=== PATIENT | female | born 1955 ===

== ENCOUNTER 2016-10-05 18:19 | Inpatient (IN) | payer MEDICARE, MEDICAID ==
[2016-10-05] MEDS ORDERED: Alum-Mag Hydrox-Simethicone Susp (30 mL) PO STA (18:57)
[2016-10-05] MEDS ORDERED: Sodium Chloride 0.9% 1,000 ML IV STA ×2 (18:57→21:29)
[2016-10-05 19:14] LABS: BASO # 0.1 K/uL (0.0-0.2); BASO % 0.6 % (0.0-2.0); EOS # 0.1 K/uL (0.0-0.7); EOS % 1.2 % (0.0-4.0); HEMATOCRIT 40.8 % (34.0-47.0); LYMPH # 3.6 K/uL (1.0-4.3); LYMPH % 34.9 % (20.0-40.0); MEAN CELL VOLUME 90.1 fl (81.0-99.0); MEAN CORPUSCULAR HEMOGLOBIN 29.2 pg (27.0-31.0); MEAN CORPUSCULAR HGB CONC 32.4 g/dL (33.0-37.0); MEAN PLATELET VOLUME 8.8 fl (7.2-11.7); MONO # 0.7 K/uL (0.0-0.8); MONO % 6.8 % (0.0-10.0); NEUT # 5.8 K/uL (1.8-7.0); NEUT % 56.5 % (50.0-75.0); RED CELL DISTRIBUTION WIDTH 15.2 % (11.5-14.5); WHITE BLOOD COUNT 10.2 K/uL (4.8-10.8)
[2016-10-05 19:21] LABS: ALB/GLOB RATIO 1.6 (1.0-2.1); ALKALINE PHOSPHATASE 75 U/L (38-126); ALT/SGPT 33 U/L (9-52); AST/SGOT 25 U/L (14-36); BILIRUBIN,TOTAL 0.4 mg/dl (0.2-1.3); BLOOD UREA NITROGEN 20 mg/dl (7-17); CALCIUM 10.1 mg/dL (8.4-10.2); CARBON DIOXIDE 28 mmol/L (22-30); CHLORIDE 99 mmol/L (98-107); GFR AFRICAN-AMERICAN > 60; GLUCOSE,RANDOM 78 mg/dL (65-105); LIPASE 521 U/L (23-300); POTASSIUM 4.8 MMOL/L (3.6-5.0); SODIUM 140 mmol/l (132-148); TOTAL PROTEIN 7.6 G/DL (6.3-8.2)
--- NOTE | 2016-10-05 19:39 | ED PDOC ---
HPI: Abdomen Time Seen by Provider: 10/05/16 18:35 Chief Complaint (Nursing): Abdominal Pain Chief Complaint (Provider): Epigastric abdominal History Per: Patient History/Exam Limitations: no limitations Onset/Duration Of Symptoms: Days (week) Outside of [place] travel?: No Current Symptoms Are (Timing): Still Present Location Of Pain/Discomfort: Epigastric (Radiatin, ruq and back ) Quality Of Discomfort: Burning Associated Symptoms: Nausea, Loss Of Appetite. denies: Fever, Chills, Vomiting Exacerbating Factors: None Alleviating Factors: None Last Bowel Movement: Today Additional Complaint(s): Pt states she has history of gastritis but she feels like it getting worse. No fever/chills. No diarrhea. (+) N/V. Abnormal Vaginal Bleeding: No Past Medical History Reviewed: Historical Data, Nursing Documentation, Vital Signs Vital Signs: Last Vital Signs Temp 98.4 F 10/05/16 18:27 Pulse 84 10/05/16 18:27 Resp 18 10/05/16 18:27 BP 151/79 H 10/05/16 18:27 Pulse Ox 100 10/05/16 18:27 - Medical History PMH: Anemia, Anxiety, Arthritis, Depression, Gastritis, HTN, Mitral Valve Prolapse Denies: CHF, COPD, Hypercholesterolemia, Hypothyroidism, Chronic Kidney Disease, Rheumatoid Arthritis - Surgical History Surgical History: Appendectomy - Family History Family History: States: No Known Family Hx - Home Medications Home Medications: Ambulatory Orders Medication Instructions Recorded Azelastine/Fluticasone [Dymista 1 sprays NS DAILY 04/08/14 Nasal [place]] Liraglutide [Victoza 2-Larry] 18 mg SC DAILY 04/08/14 Lisinopril/Hydrochlorothiazide 1 tab PO DAILY 04/08/14 [Lisinopril-Hctz 10-12.5 mg Tab] Cyclobenzaprine HCl [Flexeril] 10 mg PO HS 07/22/14 Omeprazole 40 mg PO DAILY 07/22/14 Mirtazapine [Remeron] 15 mg PO HS PRN #30 tab 08/02/14 Venlafaxine Hydrochloride 150 mg PO DAILY #0 ter 08/02/14 [Venlafaxine] Venlafaxine [Effexor XR] 37.5 mg PO DAILY #30 cer 08/02/14 - Allergies Allergies/Adverse Reactions: Allergies Allergy/AdvReac Type Severity Reaction Status Date / Time codeine Allergy RASH Verified 10/05/16 18:33 egg Allergy RASH Verified 10/05/16 18:33 morphine Allergy RASH Verified 10/05/16 18:33 Penicillins Allergy RASH Verified 10/05/16 18:33 Review of Systems ROS Statement: Except As Marked, All Systems Reviewed And Found Negative Constitutional: Negative for: Fever, Chills Gastrointestinal: Positive for: Nausea, Vomiting, Abdominal Pain Physical Exam - Reviewed Nursing Documentation Reviewed: Yes Vital Signs Reviewed: Yes - Physical Exam Appears: Positive for: Well, Non-toxic, No Acute Distress Head Exam: Positive for: ATRAUMATIC, NORMAL INSPECTION, NORMOCEPHALIC Skin: Positive for: Normal Color, Warm, DRY Eye Exam: Positive for: Normal appearance ENT: Positive for: Normal ENT Inspection Neck: Positive for: Normal, Painless ROM Cardiovascular/Chest: Positive for: Regular Rate, Rhythm Respiratory: Positive for: Normal Breath Sounds. Negative for: Accessory Muscle Use, Respiratory Distress Gastrointestinal/Abdominal: Positive for: Normal Exam, Bowel Sounds, Soft Back: Positive for: Normal Inspection Extremity: Positive for: Normal ROM Neurologic/Psych: Positive for: Alert, Oriented - Laboratory Results Result Diagrams: 10/05/16 19:04 - ECG O2 Sat by Pulse Oximetry: 100 Disposition - Clinical Impression Clinical Impression: Abdominal pain - Patient ED Disposition Is Patient to be Admitted: Transfer of Care - Disposition Disposition: Transfer of Care Disposition Time: 19:39 Condition: GOOD Forms: [facility] (Macedonian)
--- NOTE | 2016-10-05 20:22 | US ---
EXAM: US Abdomen Limited, Right Upper Quadrant EXAM DATE/TIME: 10/05/2016 6:56 PM CLINICAL HISTORY: 60 years old, female; Pain; Abdominal pain; Epigastric and right upper quadrant pain; TECHNIQUE: Real-time ultrasound of the right upper quadrant with image documentation. COMPARISON: No relevant prior studies available. FINDINGS: Gallbladder: Within normal limits in appearance, without evidence of gallstones, significant gallbladder wall thickening, or pericholecystic fluid. Reportedly negative sonographic Azul's sign. Common bile duct: Does not appear abnormally dilated, measuring less than 6 mm in diameter. Liver: Within normal limits in appearance. Measures 13.9 cm in length. Normal flow seen in the main portal vein on color and Doppler imaging. Pancreas: Incompletely seen due to gas. Visualized portions of the pancreatic head and neck appear grossly normal. Right kidney: Within normal limits in appearance. Measures 9 cm in length. No evidence of hydronephrosis. IMPRESSION: Unremarkable exam. No evidence of gallstones or cholecystitis. See above for remaining findings.
[2016-10-05] MEDS ORDERED: Iohexol 240 (50 ml) PO ONE (20:52)
[2016-10-05] MEDS ORDERED: HYDROmorphone 0.5 mg/0.5 ml ISec ONE (21:13)
[2016-10-05] MEDS ORDERED: Iohexol 240 (50 ml) ONE (21:13)
--- NOTE | 2016-10-05 21:13 | ED PDOC ---
- Laboratory Results Result Diagrams: 10/05/16 19:04 10/05/16 19:04 - ECG ECG: Positive for: Interpreted By Me ECG Rhythm: Positive for: Sinus Rhythm. Negative for: ST/T Changes Rate: 76 O2 Sat by Pulse Oximetry: 100 - Radiology X-Ray: Interpreted by Me (CXR) X-Ray Interpretation: No Acute Disease - Progress ED Course And Treament: 1999 Pt. signed out to me pending US results. 2014 On my initial evaluation, pt. still c/o epigastric pain and nausea. States symptoms have been going on x 2 weeks worse today. Also reports having a metalic taste in her mouth. Lungs clear b/l. Cardiac RRR. Abd still with epigastric tenderness. Lipase is slightly elevated. Abd US: Unremarkable exam. No evidence of gallstones or cholecystitis. CT abd/pelvis w/ PO and IV contrast, troponin, dilaudid 0.5mg IVP ordered. 2154 On re-evaluation, pt. appears more comfortable. Reports good relief of pain. Currently drinking PO contrast. Pending CT. 0000 CT abd/pelvis: constipation otherwise negative 0550 Case d/w Dr. Toure and arrangements made for 23 hr observation. Disposition - Clinical Impression Clinical Impression: Abdominal pain, Chest pain - POA Present On Arrival: None - Disposition Disposition: Hospitalized as Observation Patient Disposition Time: 02:17 Condition: GOOD Forms: [facility] (Luxembourgish)
[2016-10-06] MEDS ORDERED: Iohexol 300 100 ML IJ ONE (00:01)
[2016-10-06] MEDS ORDERED: Sodium Chloride 0.9% 50 ML IV ONE (00:01)
--- NOTE | 2016-10-06 01:00 | CT ---
EXAM: CT Abdomen and Pelvis With Intravenous Contrast CLINICAL HISTORY: 60 years old, female; Pain; Abdominal pain; Epigastric; Prior surgery; Surgery date: 6+ months; Surgery type: Appendectomy. Hysterectomy; Additional info: Epigastric pain, elevated lipase TECHNIQUE: Axial computed tomography images of the abdomen and pelvis with intravenous contrast. All CT scans at this facility use one or more dose reduction techniques, viz.: automated exposure control; ma/kV adjustment per patient size (including targeted exams where dose is matched to indication; i.e. head); or iterative reconstruction technique. Coronal and sagittal reformatted images were created and reviewed. CONTRAST: 90 mL of [id number] administered intravenously. COMPARISON: US - ABDOMEN LIMITED (GB INCLUDED) 10/05/2016 7:36:55 PM FINDINGS: Atelectasis right lung base. The liver, spleen, pancreas and adrenal glands demonstrate no acute abnormalities. No CT evidence of acute cholecystitis. Ultrasound can provide more sensitive evaluation of the biliary system. The kidneys are symmetric with no evidence of hydronephrosis. Atherosclerosis. Hiatal hernia. The small and large bowel as visualized demonstrate no evidence of obstruction or clear focus of inflammation. Colonic diverticula. Retained fecal material in the colon. Status post hysterectomy. No ascites. No free air. Degenerative changes. Soft tissue densities in the subcutaneous tissue in the right upper quadrant and left lower quadrant, correlate clinically. IMPRESSION: Hiatal hernia. Colonic diverticula. Retained fecal material in the colon. Soft tissue densities in the subcutaneous tissue in the right upper quadrant and left lower quadrant, correlate clinically. Additional details/findings as above. Correlate clinically. Followup as warranted.
[2016-10-06] MEDS ORDERED: Glucagon Recombinant 1 mg Inj IM PRN (10:11)
[2016-10-06] MEDS ORDERED: Dextrose 50% SYRINGE Inj (50 ml) IV PRN (10:11)
[2016-10-06] MEDS ORDERED: Venlafaxine 150 mg ER Cap PO SCH (10:15)
[2016-10-06] MEDS: Insulin Regular 100 units/ml SC SCH ×3 (13:00→22:25)
[2016-10-06] MEDS: Sucralfate 1 gm/10 ml Oral Susp UD PO SCH ×3 (13:06→22:29)
[2016-10-06] MEDS: Venlafaxine 150 mg ER Cap PO SCH (13:08)
--- NOTE | 2016-10-06 16:57 | RAD ---
HISTORY: epigastric pain COMPARISON: Comparison chest 07/22/2014 FINDINGS: LUNGS: No active pulmonary disease. PLEURA: No significant pleural effusion identified, no pneumothorax apparent. CARDIOVASCULAR: Normal. OSSEOUS STRUCTURES: Metallic anchor is seen overlying the left humeral head VISUALIZED UPPER ABDOMEN: Normal. OTHER FINDINGS: None. IMPRESSION: No active disease.
[2016-10-07] MEDS: Insulin Regular 100 units/ml SC SCH ×4 (08:00→22:07)
[2016-10-07] MEDS: Sucralfate 1 gm/10 ml Oral Susp UD PO SCH ×4 (09:37→22:06)
[2016-10-07] MEDS: Venlafaxine 150 mg ER Cap PO SCH (09:37)
--- NOTE | 2016-10-07 11:13 | CP.PCM.HP ---
History of Present Illness - History of Present Illness History of Present Illness: This is a 60 y/o female admitted ofr worsening of epigastric to RUQ pain that radiates to the right mid back Past Patient History - Past Medical History & Family History Past Medical History?: Yes - Past Social History Smoking Status: Former Smoker - CARDIAC Hx Congestive Heart Failure: No Hx Hypercholesterolemia: Yes Hx Hypertension: Yes Hx Mitral Valve Prolapse: Yes - PULMONARY Hx Chronic Obstructive Pulmonary Disease (COPD): No - NEUROLOGICAL Hx Neurological Disorder: No - HEENT Hx HEENT Problems: No - RENAL Hx Chronic Kidney Disease: No - ENDOCRINE/METABOLIC Hx Diabetes Mellitus Type 2: Yes - HEMATOLOGICAL/ONCOLOGICAL Hx Anemia: Yes - INTEGUMENTARY Hx Dermatological Problems: No - MUSCULOSKELETAL/RHEUMATOLOGICAL Hx Falls: No Hx Rheumatoid Arthritis: No - GASTROINTESTINAL Hx Gastritis: Yes - GENITOURINARY/GYNECOLOGICAL Other/Comment: hysterectomy 26yrs ago - PSYCHIATRIC Hx Anxiety: Yes Hx Depression: Yes Hx Substance Use: No - SURGICAL HISTORY Hx Appendectomy: Yes Hx Hysterectomy: Yes Other/Comment: breast cyst removal. anal fistula repair - ANESTHESIA Hx Anesthesia: Yes Hx Anesthesia Reactions: No Meds Allergies/Adverse Reactions: Allergies Allergy/AdvReac Type Severity Reaction Status Date / Time codeine Allergy RASH Verified 10/05/16 18:33 morphine Allergy RASH Verified 10/05/16 18:33 Penicillins Allergy RASH Verified 10/05/16 18:33 Results - Vital Signs Recent Vital Signs: Last Vital Signs Temp 98.3 F 10/07/16 08:56 Pulse 62 10/07/16 09:37 Resp 20 10/07/16 08:56 BP 118/66 10/07/16 09:37 Pulse Ox 97 10/07/16 08:56 - Labs Result Diagrams: 10/05/16 19:04 10/05/16 19:04 Labs: Laboratory Results - last 24 hr 10/06/16 10/06/16 10/06/16 11:33 14:30 16:01 POC Glucose (mg/dL) 89 135 H Troponin I < 0.0120 Lipase 10/06/16 10/06/16 10/07/16 16:15 21:50 05:51 POC Glucose (mg/dL) 73 76 Troponin I Lipase 151
[2016-10-08 00:45] VITALS: RESP 18
[2016-10-08 08:08] VITALS: O2SAT 95
[2016-10-08] MEDS: Venlafaxine 150 mg ER Cap PO SCH (08:47)
[2016-10-08] MEDS: Sucralfate 1 gm/10 ml Oral Susp UD PO SCH ×2 (08:55→13:03)
[2016-10-08] MEDS: Insulin Regular 100 units/ml SC SCH ×2 (09:03→11:51)
[2016-10-08 12:20] VITALS: BP 110/73; PULSE 66; TEMP 98.1
--- NOTE | 2016-10-09 21:22 | CON ---
DATE: 10/08/2016 REFERRING DOCTOR: Dr. Toure. REASON FOR CONSULTATION: Abdominal pain. HISTORY OF PRESENT ILLNESS: This is a very pleasant 60-year-old female with epigastric pain and discomfort radiating into the back for a couple of days. No nausea. No vomiting. No diarrhea. Some . Tolerating diet, lying in bed comfortably, in no apparent distress. PAST MEDICAL HISTORY: As above. PAST SURGICAL HISTORY: As above. MEDICATIONS: Have been reviewed. REVIEW OF SYSTEMS: All other systems have been reviewed and negative apart from the HPI. PHYSICAL EXAMINATION: VITAL SIGNS: In the hospital, grossly unremarkable. GENERAL: A pleasant, middle aged female, lying in bed comfortably, in no apparent distress. HEENT: Head normocephalic and atraumatic. Eyes: Pupils equal, round and reactive to light bilaterally. No conjunctival pallor or icterus. NECK: Supple. Normal range of motion. No lymphadenopathy. LUNGS: Coarse breath sounds bilaterally. HEART: S1, S2, regular rate and rhythm. No murmurs appreciated. ABDOMEN: Soft. Nontender, bowel sounds present. No rebound. No guarding. RECTAL: Deferred. EXTREMITIES: Pulses felt bilaterally. SKIN: Warm, dry, and intact. NEUROLOGIC: A and O x3. LABORATORY DATA: All labs and relevant radiology have been reviewed. Radiology includes a CAT scan which shows hiatal hernia, retained fecal matter in the stool. Abdominal ultrasound was performed as well, it demonstrates unremarkable exam, no evidence of gallstones or cholecystitis. WBC 10.3, hemoglobin 13.2. Lipase was 521, now is 151. Remaining LFTs are normal. ASSESSMENT AND PLAN: This is a 60-year-old female with epigastric pain and discomfort likely reflux like symptoms. Advance diet as tolerated. Discharge planning. Endo as an outpatient. Thank you for the consult. Richy Javier MD/ PhD CC: Oleg Toure MD
== END 2016-10-08 14:38 | disposition home or self-care (01) | DRG 392 ==
LOC: H.ER 18:19 → H.ERHOLD 10-06 06:10 → OBSVTOIN 10-06 06:10 → H.TEL 10-06 06:45
PROVIDERS: ADMIT Family Medicine; ATTEND Family Medicine
DX: K21.9 Gastro-esophageal reflux disease without esophagitis (principal); I10 Essential (primary) hypertension; R10.13 Epigastric pain; F32.9 Major depressive disorder, single episode, unspecified; E11.9 Type 2 diabetes mellitus without complications; Z88.0 Allergy status to penicillin; Z88.5 Allergy status to narcotic agent; Z88.6 Allergy status to analgesic agent; K29.70 Gastritis, unspecified, without bleeding; I34.1 Nonrheumatic mitral (valve) prolapse; Z87.891 Personal history of nicotine dependence; F41.9 Anxiety disorder, unspecified; M19.90 Unspecified osteoarthritis, unspecified site; E78.00 Pure hypercholesterolemia, unspecified

== ENCOUNTER 2016-10-11 12:54 | Observation (INO) | payer MEDICARE, MEDICAID ==
[2016-10-11 13:56] LABS: BASO % 0.4 % (0.0-2.0); EOS # 0.1 K/uL (0.0-0.7); EOS % 1.1 % (0.0-4.0); HEMATOCRIT 36.3 % (34.0-47.0); LYMPH # 1.8 K/uL (1.0-4.3); LYMPH % 23.6 % (20.0-40.0); MEAN CELL VOLUME 88.9 fl (81.0-99.0); MEAN CORPUSCULAR HEMOGLOBIN 29.7 pg (27.0-31.0); MEAN CORPUSCULAR HGB CONC 33.4 g/dL (33.0-37.0); MONO # 0.4 K/uL (0.0-0.8); MONO % 5.7 % (0.0-10.0); NEUT # 5.3 K/uL (1.8-7.0); NEUT % 69.2 % (50.0-75.0); RED CELL DISTRIBUTION WIDTH 15.4 % (11.5-14.5); WHITE BLOOD COUNT 7.6 K/uL (4.8-10.8)
[2016-10-11 14:06] LABS: RBC URINE 3 /hpf (0-3); URINE BACTERIA RARE (<OCC); URINE BILIRUBIN NEGATIVE (NEGATIVE); URINE BLOOD NEGATIVE (NEGATIVE); URINE COLOR YELLOW (YELLOW); URINE GLUCOSE (UA) NEG (Normal); URINE KETONE NEGATIVE (NEGATIVE); URINE LEUKOCYTE ESTERASE TRACE Leu/uL (Negative); URINE PROTEIN 30 mg/dL (NEGATIVE); URINE UROBILINOGEN 0.2-1.0 mg/dL (0.2-1.0); WBC URINE 10 /hpf (0-5)
[2016-10-11 14:10] LABS: ALB/GLOB RATIO 1.5 (1.0-2.1); ALKALINE PHOSPHATASE 125 U/L (38-126); ALT/SGPT 99 U/L (9-52); AST/SGOT 80 U/L (14-36); BILIRUBIN,TOTAL 0.8 mg/dl (0.2-1.3); BLOOD UREA NITROGEN 18 mg/dl (7-17); CALCIUM 9.7 mg/dL (8.4-10.2); CARBON DIOXIDE 26 mmol/L (22-30); CHLORIDE 103 mmol/L (98-107); GFR AFRICAN-AMERICAN > 60; GLUCOSE,RANDOM 80 mg/dL (65-105); LIPASE 96 U/L (23-300); SODIUM 140 mmol/l (132-148); TOTAL PROTEIN 7.6 G/DL (6.3-8.2)
[2016-10-11 14:23] LABS: POTASSIUM 5.3 MMOL/L (3.6-5.0)
--- NOTE | 2016-10-11 14:58 | ED PDOC ---
HPI: Abdomen Time Seen by Provider: 10/11/16 13:06 Chief Complaint (Nursing): Abdominal Pain Chief Complaint (Provider): Abdominal Pain History Per: Patient History/Exam Limitations: no limitations Onset/Duration Of Symptoms: Days (x 1 week) Current Symptoms Are (Timing): Still Present Associated Symptoms: Vomiting, Loss Of Appetite Additional Complaint(s): Tara is a 60 y/o female who presents to the ED complaining of upper abdominal pain, persisting for almost 1 week. History is significant for hospital admission last weekend for abdominal pain with elevated lipase. Chair And C[employer] Dr. Javier saw patient while inpatient. Thought patient likely had reflux and recommended endoscopy as an outpatient study. However, pain is now worse and patient states she is vomiting any and all PO intake. Denies fever, hematemesis, and black or bloody stools. PMD: Dr. Oleg Toure Past Medical History Reviewed: Historical Data, Nursing Documentation, Vital Signs Vital Signs: Last Vital Signs Temp 98.4 F 10/11/16 13:01 Pulse 82 10/11/16 13:01 Resp 16 10/11/16 13:01 BP 117/68 10/11/16 13:01 Pulse Ox 99 10/11/16 15:10 - Medical History PMH: Anemia, Anxiety, Arthritis, Depression, Gastritis, HTN, Hypercholesterolemia, Mitral Valve Prolapse, Pancreatitis Denies: CHF, COPD, Hypothyroidism, Chronic Kidney Disease, Rheumatoid Arthritis - Surgical History Surgical History: Appendectomy - Family History Family History: States: Unknown Family Hx - Social History Ex-Smoker (has not smoked in the last 12 months): Yes Alcohol: None Drugs: Denies - Home Medications Home Medications: Ambulatory Orders Medication Instructions Recorded Atorvastatin [Lipitor] 20 mg PO DAILY 10/06/16 Bimatoprost [Lumigan] 1 drop BOTHEYES HS 10/06/16 Empagliflozin [Jardiance] 25 mg PO DAILY 10/06/16 Ferrous Sulfate 325 mg PO BID 10/06/16 Fluticasone Propionate [Flovent 1 spray BID 10/06/16 [place]] Liraglutide [Victoza 3-Larry] 1.8 mg SC DAILY 10/06/16 Losartan [Cozaar] 50 mg PO DAILY 10/06/16 MetFORMIN [glucoPHAGE] 1,000 mg PO BID 10/06/16 Venlafaxine HCl [Venlafaxine HCl 300 mg PO DAILY 10/06/16 ER] cycloSPORINE [Restasis] 1 drop BOTHEYES HS 10/06/16 traZODone [Desyrel] 100 mg PO HS 10/06/16 Losartan [Cozaar] 50 mg PO DAILY #30 tab 10/08/16 Metoclopramide [Reglan] 5 mg PO ACHS #30 tab 10/08/16 Pantoprazole [Protonix] 40 mg PO DAILY #30 ect 10/08/16 Sucralfate [Carafate Oral Susp] 1 gm PO QID #40 10/08/16 traMADol [Ultram] 50 mg PO Q8 PRN #12 tab 10/08/16 - Allergies Allergies/Adverse Reactions: Allergies Allergy/AdvReac Type Severity Reaction Status Date / Time codeine Allergy RASH Verified 10/05/16 18:33 morphine Allergy RASH Verified 10/05/16 18:33 Penicillins Allergy RASH Verified 10/05/16 18:33 Review of Systems ROS Statement: Except As Marked, All Systems Reviewed And Found Negative Constitutional: Negative for: Fever Gastrointestinal: Positive for: Vomiting, Abdominal Pain (upper), Other (Loss of appetite). Negative for: Melena, Hematochezia, Hematemesis Physical Exam - Reviewed Nursing Documentation Reviewed: Yes Vital Signs Reviewed: Yes - Physical Exam Appears: Positive for: Well, Non-toxic, No Acute Distress Head Exam: Positive for: ATRAUMATIC, NORMAL INSPECTION, NORMOCEPHALIC Skin: Positive for: Normal Color, Warm, Dry Eye Exam: Positive for: EOMI, Normal appearance, PERRL ENT: Positive for: Normal ENT Inspection Neck: Positive for: Normal, Painless ROM, Supple Cardiovascular/Chest: Positive for: Regular Rate, Rhythm. Negative for: Murmur Respiratory: Positive for: Normal Breath Sounds. Negative for: Accessory Muscle Use, Respiratory Distress Gastrointestinal/Abdominal: Positive for: Soft, Tenderness (Mild to moderate upper and RUQ tenderness) Back: Positive for: Normal Inspection. Negative for: Vertebral Tenderness Extremity: Positive for: Normal ROM. Negative for: Pedal Edema, Deformity Neurologic/Psych: Positive for: Alert, Oriented - Laboratory Results Result Diagrams: 10/11/16 13:45 10/11/16 13:45 - ECG O2 Sat by Pulse Oximetry: 99 (RA) Pulse Ox Interpretation: Normal Medical Decision Making Medical Decision Making: Time: 13:22 Initial Impression: Abdominal Pain Initial Plan: --Repeat blood work --Ordered US Abdomen Complete to r/o intermittent cholelithiasis as cause for elevated transaminases Time: 15:00 --Patient will be signed out by me to Dr. Justin Jensen MD, pending ultrasound and reevaluation Scribe Attestation: Documented by Dimple Avalos, acting as a scribe for Richy Mcmullen III, DO Provider Scribe Attestation: All medical record entries made by the Scribe were at my direction and personally dictated by me. I have reviewed the chart and agree that the record accurately reflects my personal performance of the history, physical exam, medical decision making, and the department course for this patient. I have also personally directed, reviewed, and agree with the discharge instructions and disposition. Disposition - Clinical Impression Clinical Impression: Abdominal pain, Vomiting - Patient ED Disposition Is Patient to be Admitted: Transfer of Care - Disposition Disposition: Transfer of Care Disposition Time: 15:00 Condition: STABLE Forms: [facility] (Telugu) Patient Signed Over To: Justin Jensen Handoff Comments: Pending ultrasound and reevaluation, d/w GI or PMD and dispo
[2016-10-11] MEDS ORDERED: Alum-Mag Hydrox-Simethicone Susp (30 mL) PO ONE (15:15)
[2016-10-11] MEDS ORDERED: Alum-Mag Hydrox-Simethicone Susp (30 mL) ONE (15:45)
--- NOTE | 2016-10-11 16:57 | ED PDOC ---
- Laboratory Results Result Diagrams: 10/11/16 13:45 10/11/16 13:45 - ECG O2 Sat by Pulse Oximetry: 99 (RA) Pulse Ox Interpretation: Normal Medical Decision Making Medical Decision Making: Time: 15:00 --Patient was signed out by Dr. Richy Mcmullen III DO to me, pending ultrasound, discussion w/ GI or PMD, and disposition Time: 15:41 --Bentyl 10 mg PO Time: 17:38 US Abdomen: FINDINGS: LIVER: Measures 14.2 cm in sagittal dimension. Echogenic liver may be seen in setting of hepatic parenchymal disease or fatty infiltration. No focal hepatic mass identified. The main portal vein appears patent with normal directional flow. No intrahepatic bile duct dilatation. GALLBLADDER: No gallstones. No gallbladder wall thickening. Positive sonographic Azul's sign as assessed by the make up arranger. COMMON BILE DUCT: Measures 4 mm. PANCREAS: Not well-visualized. RIGHT KIDNEY: Measures 10.0 x 4.0 x 4.0cm. No obstructing calculus or hydronephrosis identified. LEFT KIDNEY: Measures 10.3 x 4.5 x 4.0cm. No obstructing calculus or hydronephrosis identified. SPLEEN: Measures approximately 8.5 x 2.8 x 2.8 cm. AORTA: Limited views appear unremarkable. IVC: Limited views appear unremarkable. OTHER FINDINGS: None. IMPRESSION: Positive sonographic Azul's sign as assessed by the make up arranger. No evidence of gallstones, gallbladder wall thickening, or pericholecystic edema. Correlate clinically. Echogenic liver may be seen in setting of hepatic parenchymal disease or fatty infiltration. Time: 17:49 --Discussed case with Dr. Toure, who agreed we will place patient in OBS and have GI see patient in ED. Scribe Attestation: Documented by Dimple Avalos, acting as a scribe for Justin Jensen MD Provider Scribe Attestation: All medical record entries made by the Scribe were at my direction and personally dictated by me. I have reviewed the chart and agree that the record accurately reflects my personal performance of the history, physical exam, medical decision making, and the department course for this patient. I have also personally directed, reviewed, and agree with the discharge instructions and disposition. Disposition - Clinical Impression Clinical Impression: Abdominal pain, Vomiting - POA Present On Arrival: None - Disposition Disposition: Hospitalized as Observation Patient Disposition Time: 17:50 Condition: STABLE Forms: [facility] [employer] [facility] (Ecuadorean)
--- NOTE | 2016-10-11 17:39 | US ---
HISTORY: upper abd pain, elev transaminases COMPARISON: Limited abdominal ultrasound performed 10/05/16 TECHNIQUE: Sonographic evaluation of the abdomen. FINDINGS: LIVER: Measures 14.2 cm in sagittal dimension. Echogenic liver may be seen in setting of hepatic parenchymal disease or fatty infiltration. No focal hepatic mass identified. The main portal vein appears patent with normal directional flow. No intrahepatic bile duct dilatation. GALLBLADDER: No gallstones. No gallbladder wall thickening. Positive sonographic Azul's sign as assessed by the stable attendant. COMMON BILE DUCT: Measures 4 mm. PANCREAS: Not well-visualized. RIGHT KIDNEY: Measures 10.0 x 4.0 x 4.0cm. No obstructing calculus or hydronephrosis identified. LEFT KIDNEY: Measures 10.3 x 4.5 x 4.0cm. No obstructing calculus or hydronephrosis identified. SPLEEN: Measures approximately 8.5 x 2.8 x 2.8 cm. AORTA: Limited views appear unremarkable. IVC: Limited views appear unremarkable. OTHER FINDINGS: None. IMPRESSION: Positive sonographic Azul's sign as assessed by the stable attendant. No evidence of gallstones, gallbladder wall thickening, or pericholecystic edema. Correlate clinically. Echogenic liver may be seen in setting of hepatic parenchymal disease or fatty infiltration.
[2016-10-11] MEDS: Dextrose 5%/Lactated Ringer's 1,000 ML IV SCH (21:58)
[2016-10-12 07:32] LABS: HEMATOCRIT 33.9 % (34.0-47.0); MEAN CELL VOLUME 89.7 fl (81.0-99.0); MEAN CORPUSCULAR HEMOGLOBIN 29.9 pg (27.0-31.0); MEAN CORPUSCULAR HGB CONC 33.3 g/dL (33.0-37.0); RED CELL DISTRIBUTION WIDTH 15.4 % (11.5-14.5); WHITE BLOOD COUNT 5.6 K/uL (4.8-10.8)
[2016-10-12 07:50] LABS: ALB/GLOB RATIO 1.5 (1.0-2.1); ALKALINE PHOSPHATASE 100 U/L (38-126); ALT/SGPT 72 U/L (9-52); AST/SGOT 29 U/L (14-36); BILIRUBIN,TOTAL 0.5 mg/dl (0.2-1.3); BLOOD UREA NITROGEN 14 mg/dl (7-17); CALCIUM 9.1 mg/dL (8.4-10.2); CARBON DIOXIDE 27 mmol/L (22-30); CHLORIDE 105 mmol/L (98-107); GFR AFRICAN-AMERICAN > 60; GLUCOSE,RANDOM 86 mg/dL (65-105); POTASSIUM 3.9 MMOL/L (3.6-5.0); SODIUM 141 mmol/l (132-148); TOTAL PROTEIN 5.9 G/DL (6.3-8.2)
[2016-10-12] MEDS: Dextrose 5%/Lactated Ringer's 1,000 ML IV SCH (08:08)
[2016-10-12 08:43] LABS: AMYLASE 62 U/L (30-110); LIPASE 65 U/L (23-300)
[2016-10-12] MEDS ORDERED: Lactated Ringer's 500 ML IV ONE (11:05)
[2016-10-12] MEDS ORDERED: Propofol 10 mg/ml Inj (20 ML) ONE (11:09)
--- NOTE | 2016-10-12 13:14 | CP.PCM.HP ---
History of Present Illness - History of Present Illness History of Present Illness: 60 y/o female with PMHx of HTN, DM type 2, Gastritis who presented to the ED yesterday complaining of epigastric abdominal pain radiating to RUQ, persisting for almost 1 week, associated with nausea, vomiting and PO intolerance. Pt was recently admitted last weekend for same abdominal pain with elevated lipase. Redrying Machine Operator Dr. Javier saw patient while inpatient. Thought patient likely had reflux and recommended endoscopy as an outpatient study. However, pain was getting worse yesterday, she was vomiting any and all PO intake. Still c/o epigastric pain radiating to RUQ, however improved. reports episodes of black stools since last week. denies Cp, N/V, diarrheas, hematemesis or blood in stools Present on Admission - Present on Admission Any Indicators Present on Admission: No History of DVT/PE: No History of Uncontrolled Diabetes: No Urinary Catheter: No Decubitus Ulcer Present: No Review of Systems - Review of Systems All systems: reviewed and no additional remarkable complaints except (as per HPI ) Past Patient History - Past Medical History & Family History Past Medical History?: Yes - Past Social History Smoking Status: Former Smoker - CARDIAC Hx Cardiac Disorders: Yes Hx Congestive Heart Failure: No Hx Hypercholesterolemia: Yes Hx Hypertension: Yes Hx Mitral Valve Prolapse: Yes - PULMONARY Hx Respiratory Disorders: No Hx Chronic Obstructive Pulmonary Disease (COPD): No - NEUROLOGICAL Hx Neurological Disorder: No - HEENT Hx HEENT Problems: No - RENAL Hx Chronic Kidney Disease: No - ENDOCRINE/METABOLIC Hx Endocrine Disorders: Yes Hx Diabetes Mellitus Type 2: Yes Hx Hypothyroidism: No - HEMATOLOGICAL/ONCOLOGICAL Hx AIDS: No Hx Anemia: Yes Hx Human Immunodeficiency Virus (HIV): No - INTEGUMENTARY Hx Dermatological Problems: No - MUSCULOSKELETAL/RHEUMATOLOGICAL Hx Musculoskeletal Disorders: No Hx Falls: No - GASTROINTESTINAL Hx Gastrointestinal Disorders: Yes Hx Gastritis: Yes Hx Pancreatitis: Yes - GENITOURINARY/GYNECOLOGICAL Hx Genitourinary Disorders: No Other/Comment: hysterectomy 26yrs ago - PSYCHIATRIC Hx Psychophysiologic Disorder: Yes Hx Anxiety: Yes Hx Depression: Yes Hx Substance Use: No - SURGICAL HISTORY Hx Surgeries: Yes Hx Appendectomy: Yes Hx Hysterectomy: Yes Other/Comment: right achilles Sx - ANESTHESIA Hx Anesthesia: Yes Hx Anesthesia Reactions: No Hx Malignant Hyperthermia: No Has any member of the family had a problem w/ anesthesia?: No Meds Allergies/Adverse Reactions: Allergies Allergy/AdvReac Type Severity Reaction Status Date / Time codeine Allergy RASH Verified 10/05/16 18:33 morphine Allergy RASH Verified 10/05/16 18:33 Penicillins Allergy RASH Verified 10/05/16 18:33 Physical Exam - Constitutional Appears: No Acute Distress - ENT Exam ENT Exam: Mucous Membranes Moist - Respiratory Exam Respiratory Exam: Clear to Auscultation Bilateral, NORMAL BREATHING PATTERN - Cardiovascular Exam Cardiovascular Exam: REGULAR RHYTHM, +S1, +S2 - GI/Abdominal Exam GI & Abdominal Exam: Normal Bowel Sounds, Soft, Tenderness (mild tender to palpation of epigastrium and RUQ, no rebound tenderness noted). absent: Distended, Firm, Guarding, Rebound - Extremities Exam Extremities exam: Positive for: normal inspection. Negative for: calf tenderness, pedal edema - Neurological Exam Neurological exam: Alert, Oriented x3 Results - Vital Signs Recent Vital Signs: Last Vital Signs Temp 97.4 F L 10/12/16 12:05 Pulse 69 10/12/16 12:05 Resp 18 10/12/16 12:05 BP 132/79 10/12/16 12:05 Pulse Ox 99 10/12/16 12:05 - Labs Result Diagrams: 10/12/16 06:50 10/12/16 06:50 Labs: Laboratory Results - last 24 hr 10/12/16 10/12/16 10/12/16 06:37 06:50 06:50 WBC 5.6 RBC 3.78 L Hgb 11.3 L Hct 33.9 L MCV 89.7 MCH 29.9 MCHC 33.3 RDW 15.4 H Plt Count 245 Sodium 141 Potassium 3.9 Chloride 105 Carbon Dioxide 27 Anion Gap 13 BUN 14 Creatinine 0.8 Est GFR ( Amer) > 60 Est GFR (Non-Af Amer) > 60 POC Glucose (mg/dL) 77 Random Glucose 86 Calcium 9.1 Total Bilirubin 0.5 AST 29 ALT 72 H D Alkaline Phosphatase 100 Total Protein 5.9 L Albumin 3.5 D Globulin 2.4 Albumin/Globulin Ratio 1.5 Amylase 62 Lipase 65 Assessment & Plan - Assessment and Plan (Free Text) Plan: Epigastric pain, nausea and vomiting -admit for obs in medSurg NPO IV fluids IV protonix IV zofran for nausea Endoscopy today AM as per GI -abd US showed: positive Azul's sign, no evidence of gallstones or cholecystitis -GI consult, Dr. Javier on board HTN held home meds BP WNL w/o meds DM type 2 held home meds NPO status for now BSL: 77 today elevated LFTs trending down today f/u LFTs DVT prophylaxis ambulating - Date & Time Date: 10/12/16 Time: 09:00
--- NOTE | 2016-10-12 14:35 | CP.PCM.PCO ---
Assessment/Plan - Assessment/Plan Assessment (Free Text): Pt stable, tolerated diet without n/v s/p endoscopy. Pt cleared for d/c home by Dr. Javier, gastritis per endo report. Pt cleared for d/c home by Dr. Toure. Pt to f/u with PMD and Dr. Javier in 1 week. - Problems Patient Problems: Problem List (Active/Current) Problem Status Onset Code Abdominal pain Acute R10.9 Vomiting Acute R11.10
[2016-10-12 16:50] VITALS: BP 146/83; PULSE 78; RESP 20; TEMP 98.8; O2SAT 98
--- NOTE | 2016-10-12 19:42 | CP.PCM.DIS ---
Provider - Provider Date of Admission: 10/11/16 17:47 Attending physician: Oleg Toure MD Consults: GI, Dr. Javier Time Spent in preparation of Discharge (in minutes): 30 Diagnosis - Discharge Diagnosis (1) Gastritis Status: Acute Comment: Endoscopy done today showed gastritis. Patient is stable, tolerated diet without n/v. c/w PPI. F/u with GI, Dr. Javier in 1 week. f/u with PMD in 1 week (2) Hypertension Status: Chronic Comment: c/w home meds and f/u with PMD (3) Diabetes mellitus type 2 in obese Status: Chronic Comment: c/w home meds and f/u with PMD Hospital Course - Lab Results Lab Results: Most Recent Lab Values WBC 5.6 K/uL (4.8-10.8) 10/12/16 06:50 RBC 3.78 Mil/uL (3.80-5.20) L 10/12/16 06:50 Hgb 11.3 g/dL (12.0-16.0) L 10/12/16 06:50 Hct 33.9 % (34.0-47.0) L 10/12/16 06:50 MCV 89.7 fl (81.0-99.0) 10/12/16 06:50 MCH 29.9 pg (27.0-31.0) 10/12/16 06:50 MCHC 33.3 g/dL (33.0-37.0) 10/12/16 06:50 RDW 15.4 % (11.5-14.5) H 10/12/16 06:50 Plt Count 245 K/uL (130-400) 10/12/16 06:50 MPV 9.0 fl (7.2-11.7) 10/11/16 13:45 Neut % (Auto) 69.2 % (50.0-75.0) 10/11/16 13:45 Lymph % (Auto) 23.6 % (20.0-40.0) 10/11/16 13:45 [place] % (Auto) 5.7 % (0.0-10.0) 10/11/16 13:45 Eos % (Auto) 1.1 % (0.0-4.0) 10/11/16 13:45 Baso % (Auto) 0.4 % (0.0-2.0) 10/11/16 13:45 Neut # 5.3 K/uL (1.8-7.0) 10/11/16 13:45 Lymph # 1.8 K/uL (1.0-4.3) 10/11/16 13:45 [place] # 0.4 K/uL (0.0-0.8) 10/11/16 13:45 Eos # 0.1 K/uL (0.0-0.7) 10/11/16 13:45 Baso # 0.0 K/uL (0.0-0.2) 10/11/16 13:45 Sodium 141 mmol/l (132-148) 10/12/16 06:50 Potassium 3.9 MMOL/L (3.6-5.0) 10/12/16 06:50 Chloride 105 mmol/L (98-107) 10/12/16 06:50 Carbon Dioxide 27 mmol/L (22-30) 10/12/16 06:50 Anion Gap 13 (10-20) 10/12/16 06:50 BUN 14 mg/dl (7-17) 10/12/16 06:50 Creatinine 0.8 mg/dL (0.7-1.2) 10/12/16 06:50 Est GFR ( Amer) > 60 10/12/16 06:50 Est GFR (Non-Af Amer) > 60 10/12/16 06:50 POC Glucose (mg/dL) 108 mg/dL (65-110) 10/12/16 16:47 Random Glucose 86 mg/dL (65-105) 10/12/16 06:50 Calcium 9.1 mg/dL (8.4-10.2) 10/12/16 06:50 Total Bilirubin 0.5 mg/dl (0.2-1.3) 10/12/16 06:50 AST 29 U/L (14-36) 10/12/16 06:50 ALT 72 U/L (9-52) H D 10/12/16 06:50 Alkaline Phosphatase 100 U/L (38-126) 10/12/16 06:50 Total Protein 5.9 G/DL (6.3-8.2) L 10/12/16 06:50 Albumin 3.5 g/dL (3.5-5.0) D 10/12/16 06:50 Globulin 2.4 gm/dL (2.2-3.9) 10/12/16 06:50 Albumin/Globulin Ratio 1.5 (1.0-2.1) 10/12/16 06:50 Amylase 62 U/L (30-110) 10/12/16 06:50 Lipase 65 U/L (23-300) 10/12/16 06:50 Urine Color Yellow (YELLOW) 10/11/16 13:45 Urine Clarity Cloudy (Clear) 10/11/16 13:45 Urine pH 5.0 (5.0-8.0) 10/11/16 13:45 Ur Specific [place] 1.026 (1.003-1.030) 10/11/16 13:45 Urine Protein 30 mg/dL (NEGATIVE) 10/11/16 13:45 Urine Glucose (UA) Neg mg/dL (Normal) 10/11/16 13:45 Urine Ketones Negative mg/dL (NEGATIVE) 10/11/16 13:45 Urine Blood Negative (NEGATIVE) 10/11/16 13:45 Urine Nitrate Negative (NEGATIVE) 10/11/16 13:45 Urine Bilirubin Negative (NEGATIVE) 10/11/16 13:45 Urine Urobilinogen 0.2-1.0 mg/dL (0.2-1.0) 10/11/16 13:45 Ur Leukocyte Esterase Trace [place]/uL (Negative) 10/11/16 13:45 Urine RBC (Auto) 3 /hpf (0-3) 10/11/16 13:45 Urine Microscopic WBC 10 /hpf (0-5) H 10/11/16 13:45 Ur Squamous Epith Cells 6 /hpf (0-5) H 10/11/16 13:45 Urine Bacteria Rare (<OCC) 10/11/16 13:45 - Date & Time of H&P Date of H&P: 10/12/16 Time of H&P: 10:40 Discharge Exam - Head Exam Head Exam: ATRAUMATIC, NORMAL INSPECTION, NORMOCEPHALIC - Additional Findings Additional findings: Constitutional Appears: No Acute Distress - ENT Exam ENT Exam: Mucous Membranes Moist - Respiratory Exam Respiratory Exam: Clear to Auscultation Bilateral, NORMAL BREATHING PATTERN - Cardiovascular Exam Cardiovascular Exam: REGULAR RHYTHM, +S1, +S2 - GI/Abdominal Exam GI & Abdominal Exam: Normal Bowel Sounds, Soft, no Tenderness to palpation noted. absent: Distended, Firm, Guarding, Rebound - Extremities Exam Extremities exam: Positive for: normal inspection. Negative for: calf tenderness, pedal edema - Neurological Exam Neurological exam: Alert, Oriented x3 Discharge Plan - Follow Up Plan Condition: STABLE Disposition: HOME/ ROUTINE Instructions: Pantoprazole (By mouth), Gastritis (DC), Heart Healthy Diet (DC) Additional Instructions: Take Protonix 40mg PO twice a day for 1 week and follow up with hall porter to evaluate continuation for twice a day dosing. Referrals: Oleg Toure MD [Family Provider] - Richy Javier MD, PhD [Staff Provider] -
--- NOTE | 2016-10-12 23:31 | CON ---
DATE: 10/12/2016 HISTORY OF PRESENT ILLNESS: This is a 60-year-old female who comes in to the hospital for abdominal pain and discomfort. No nausea. No vomiting. She left and came back for the same pain of unclear etiology ____ and follow up with me in the office. Currently, lying in bed comfortably, in no apparent distress. PAST MEDICAL HISTORY: Includes anemia, anxiety, arthritis, depression, gastritis, hypertension, hypercholesterolemia, mitral valve prolapse, hepatitis. PAST SURGICAL HISTORY: As above. MEDICATIONS: Have been reviewed. REVIEW OF SYSTEMS: All other systems have been reviewed and negative apart from the HPI. PHYSICAL EXAMINATION: VITAL SIGNS: In the hospital, grossly unremarkable. GENERAL: A pleasant, elderly appearing female, lying in bed comfortably, in no apparent distress. HEENT: Head normocephalic and atraumatic. Eyes: Pupils equal, round and reactive to light bilaterally. No conjunctival pallor or icterus. NECK: Supple. Normal range of motion. No lymphadenopathy. LUNGS: Coarse breath sounds. HEART: S1, S2, regular rate and rhythm. No murmurs appreciated. ABDOMEN: Soft. No discomfort. Bowel sounds present. No rebound. No guarding. RECTAL: Deferred. EXTREMITIES: Pulses felt bilaterally. SKIN: Warm, dry, and intact. NEUROLOGIC: A and O x3. LABORATORY DATA: All labs and relevant radiology have been reviewed. WBC 5.6, hemoglobin 11.3, hematocrit 33.9. AST and ALT 29 and 72. ASSESSMENT AND PLAN: This is a 60-year-old female with abdominal pain and discomfort. Plan for endoscopy. Thank you for the consult. Richy Javier MD/ PhD cc: Oleg Toure MD
== END 2016-10-12 17:22 | disposition home or self-care (01) ==
LOC: H.ER 12:54 → H.ERHOLD 17:47 → H.MEDSURG1 20:21
PROVIDERS: ADMIT Family Medicine; ATTEND Family Medicine
DX: K29.70 Gastritis, unspecified, without bleeding (principal); E66.9 Obesity, unspecified; Z68.31 Body mass index [BMI] 31.0-31.9, adult; I10 Essential (primary) hypertension; E78.00 Pure hypercholesterolemia, unspecified; I34.1 Nonrheumatic mitral (valve) prolapse; E11.9 Type 2 diabetes mellitus without complications; Z87.891 Personal history of nicotine dependence; Z88.6 Allergy status to analgesic agent; Z88.5 Allergy status to narcotic agent; Z88.0 Allergy status to penicillin; F41.9 Anxiety disorder, unspecified; F32.9 Major depressive disorder, single episode, unspecified; M19.90 Unspecified osteoarthritis, unspecified site; R79.89 Other specified abnormal findings of blood chemistry
CPT/HCPCS: 36415; 43239; 76700; 80053; 81003; 82150; 82948; 83690; 85025; 85027; 87086; 88305; 99284; C9113; G0378; J2001; J2405; J2704; J7120